=== PATIENT | male | born 1965 | race American Indian/Alaskan Native ===

== ENCOUNTER 2021-11-20 16:08 | Emergency (ER) | payer MEDICARE ==
[2021-11-20 17:24] LABS: #Basophils 0.1 10x3/uL (0.0-0.2); #Monocytes 0.6 10x3/uL (0.0-1.1); #Neutrophils 6.2 10x3/uL (1.5-8.4); %Basophils 0.6 % (0.0-2.0); %Eosinophils 0.4 % (0.0-6.0); %Lymphocytes 23.3 % (18.0-47.0); %Monocytes 6.9 % (0.0-10.0); %Neutrophils 68.6 % (40.0-75.0); Hemoglobin 16.9 g/dL (13.5-17.5); Mean Corpuscular HGB CONC 35.9 g/dL (32.0-36.0); Mean Corpuscular Hemoglobin 31.5 pg (27.0-33.0); Mean Corpuscular Volume 87.9 fl (81.2-95.1); Mean Platelet Volume 10.1 fl (7.4-10.4); Platelet Count 239 10x3/uL (150-450); RBC Distribution Width 12.3 % (11.5-14.5); Red Blood Cell (RBC) Count 5.36 10x6/uL (4.32-5.72)
[2021-11-20 17:36] LABS: Acetaminophen Less than 10.0 mcg/mL (10.0-30.0); Alcohol Less than 10 mg/dL (Less than 10); CK (CPK) 40 U/L (30-200); Magnesium 2.2 mg/dL (1.6-2.6); Salicylate Less than 8.0 mg/dL (15.0-30.0)
[2021-11-20 17:37] LABS: ALT (SGPT) 16 U/L (8-55); AST (SGOT) 16 U/L (5-34); Albumin 4.5 g/dL (3.5-5.0); Alcohol Less than 10 mg/dL (Less than 10); Alkaline Phosphatase 83 U/L (40-110); Anion Gap 21 mmol/L (10-20); BUN (Urea Nitrogen) 32 mg/dL (8.4-25.7); Bilirubin, Total 1.5 mg/dL (0.2-1.2); Calc. Creatinine Clearance 0 mL/min (70-130); Calcium 10.8 mg/dL (7.8-10.44); Carbon Dioxide 18 mmol/L (22-29); Chloride 104 mmol/L (98-107); Globulin 3.3 g/dL (2.4-3.5); Glucose 103 mg/dL (70-105); Potassium 4.4 mmol/L (3.5-5.1); Protein, Total 7.8 g/dL (6.0-8.3); Sodium 139 mmol/L (136-145)
[2021-11-20 18:26] LABS: SARS-CoV-2 NAA Rapid Test Not Detected (NotDetected)
[2021-11-20] MEDS ORDERED: Lorazepam 2 MG/ML VIAL ONE (20:57)
[2021-11-20 21:23] LABS: Bilirubin Neg (Negative); Blood, Urine 50 (Negative); Clarity Slightly Cloudy (Clear); Glucose, Urine (Dipstick) Normal (Negative); Ketone, Urine 150 mg/dL (Negative); Leukocyte Negative (Negative); Nitrite Negative (Negative); Protein, Urine (Dipstick) 30 mg/dl (Neg-Trace); Specific Gravity, Urine 1.025 (1.002-1.036)
[2021-11-20 21:34] LABS: Amphetamine Not Detected (NotDetected); Barbiturates Screen Not Detected (NotDetected); Benzodiazepine Screen Not Detected (NotDetected); Cocaine Metabolite Screen Not Detected (NotDetected); Methadone Not Detected (NotDetected); Methamphetamine Not Detected (NotDetected); Opiate Screen Not Detected (NotDetected); Oxycodone Screen Not Detected (NotDetected); Phencyclidine (PCP) Not Detected (NotDetected); THC/Cannabinoid Screen Not Detected (NotDetected); Tricyclic Screen Not Detected (NotDetected)
[2021-11-20 21:35] LABS: Bacteria/HPF None Seen HPF (None Seen); Squamous Epithelial 0-3 HPF (0-3); WBC/HPF 0-3 HPF (0-3)
[2021-11-21 09:05] LABS: Anion Gap 14 mmol/L (10-20); BUN (Urea Nitrogen) 25 mg/dL (8.4-25.7); Calc. Creatinine Clearance 0 mL/min (70-130); Calcium 9.5 mg/dL (7.8-10.44); Carbon Dioxide 20 mmol/L (22-29); Chloride 109 mmol/L (98-107); Glucose 86 mg/dL (70-105); Potassium 3.9 mmol/L (3.5-5.1); Sodium 139 mmol/L (136-145)
== END 2021-11-22 10:36 ==
LOC: CSHERS 16:08
DX: F20.2 Catatonic schizophrenia (principal); Z20.822 Contact with and (suspected) exposure to COVID-19
CPT/HCPCS: 70450; 71045; 80048; 80306; 80307 ×2; 82140; 82550; 83605; 83735; 93005; U0002; 51701; 80053; 81003; 81015; 84443; 85025; 93010; 96361; 96374; J2060

== ENCOUNTER 2022-04-22 17:43 | Emergency (ER) | payer MEDICARE ==
[2022-04-22 19:06] LABS: #Basophils 0.1 10x3/uL (0.0-0.2); #Eosinphils 0.1 10x3/uL (0.0-0.5); #Monocytes 0.7 10x3/uL (0.0-1.1); #Neutrophils 7.5 10x3/uL (1.5-8.4); %Basophils 0.6 % (0.0-2.0); %Lymphocytes 21.3 % (18.0-47.0); %Monocytes 6.4 % (0.0-10.0); %Neutrophils 70.4 % (40.0-75.0); Hemoglobin 17.3 g/dL (13.5-17.5); Mean Corpuscular HGB CONC 36.3 g/dL (32.0-36.0); Mean Corpuscular Hemoglobin 31.7 pg (27.0-33.0); Mean Corpuscular Volume 87.2 fl (81.2-95.1); Mean Platelet Volume 9.8 fl (7.4-10.4); Platelet Count 242 10x3/uL (150-450); Red Blood Cell (RBC) Count 5.46 10x6/uL (4.32-5.72); White Blood Cell (WBC) Count 10.7 10x3/uL (3.5-10.5)
[2022-04-22 19:19] LABS: Acetaminophen Less than 10.0 mcg/mL (10.0-30.0); Alcohol Less than 10 mg/dL (Less than 10); Salicylate Less than 8.0 mg/dL (15.0-30.0)
[2022-04-22 19:20] LABS: ALT (SGPT) 24 U/L (8-55); AST (SGOT) 17 U/L (5-34); Albumin 4.2 g/dL (3.5-5.0); Alkaline Phosphatase 76 U/L (40-110); Anion Gap 21 mmol/L (10-20); BUN (Urea Nitrogen) 26 mg/dL (8.4-25.7); CK (CPK) 30 U/L (30-200); Calc. Creatinine Clearance 0 mL/min (70-130); Calcium 10.5 mg/dL (7.8-10.44); Carbon Dioxide 18 mmol/L (22-29); Chloride 102 mmol/L (98-107); Estimated GFR 86; Globulin 3.5 g/dL (2.4-3.5); Glucose 110 mg/dL (70-105); Potassium 4.4 mmol/L (3.5-5.1); Protein, Total 7.7 g/dL (6.0-8.3); Sodium 137 mmol/L (136-145)
[2022-04-22 20:21] LABS: Bilirubin Neg (Negative); Blood, Urine 50 (Negative); Clarity Clear (Clear); Glucose, Urine (Dipstick) Normal (Negative); Ketone, Urine 150 mg/dL (Negative); Leukocyte Negative (Negative); Nitrite Negative (Negative); Protein, Urine (Dipstick) 30 mg/dl (Neg-Trace); Specific Gravity, Urine 1.025 (1.005-1.030)
[2022-04-22 20:28] LABS: Bacteria/HPF None Seen HPF (None Seen); Squamous Epithelial 0-3 HPF (0-3); WBC/HPF 0-3 HPF (0-3)
[2022-04-22 20:32] LABS: Amphetamine Not Detected (NotDetected); Barbiturates Screen Not Detected (NotDetected); Benzodiazepine Screen Not Detected (NotDetected); Cocaine Metabolite Screen Not Detected (NotDetected); Methadone Not Detected (NotDetected); Methamphetamine Not Detected (NotDetected); Opiate Screen Not Detected (NotDetected); Oxycodone Screen Not Detected (NotDetected); Phencyclidine (PCP) Not Detected (NotDetected); THC/Cannabinoid Screen Not Detected (NotDetected); Tricyclic Screen Not Detected (NotDetected)
[2022-04-22 23:58] LABS: SARS-CoV-2 NAA Rapid Test Not Detected (NotDetected)
== END 2022-04-23 20:44 ==
LOC: CSHERS 17:43
DX: F20.2 Catatonic schizophrenia (principal); F31.9 Bipolar disorder, unspecified; Z20.822 Contact with and (suspected) exposure to COVID-19
CPT/HCPCS: 51701; 70450; 71045; 80306; 80307; 82550; 82962; 93005; 96360; 96361; 99285; U0002; 36415; 36416; 80053; 81003; 81015; 84443; 85025

== ENCOUNTER 2023-02-13 19:11 | Inpatient (IN) | payer OTHER, MEDICARE ==
[2023-02-13] MEDS ORDERED: Naloxone HCl 0.4 mg/ml Vial ONE (19:21)
[2023-02-13] MEDS ORDERED: Lorazepam 2 MG/ML VIAL ONE (19:22)
[2023-02-13] MEDS ORDERED: Acetaminophen 325 MG Suppository ONE (19:25)
[2023-02-13] MEDS ORDERED: Acetaminophen 650 MG Suppository ONE (19:25)
[2023-02-13] MEDS ORDERED: NOREPINEPHRINE 8 MG/250 ML-D5W 250 ML ONE ×2 (19:30→22:52)
[2023-02-13] MEDS ORDERED: Propofol 1,000 MG/100 ML VIAL IV ONE (19:42)
[2023-02-13 19:55] LABS: Hematocrit 48.7 % (38.8-50.0); Hemoglobin 16.4 g/dL (13.5-17.5); Mean Corpuscular HGB CONC 33.7 g/dL (32.0-36.0); Mean Corpuscular Hemoglobin 31.4 pg (27.0-33.0); Mean Corpuscular Volume 93.3 fl (81.2-95.1); Mean Platelet Volume 11.1 fl (7.4-10.4); Platelet Count 163 10x3/uL (150-450); RBC Distribution Width 12.6 % (11.5-14.5); Red Blood Cell (RBC) Count 5.22 10x6/uL (4.32-5.72); White Blood Cell (WBC) Count 6.3 10x3/uL (3.5-10.5)
[2023-02-13 19:55] LABS: Bilirubin Neg (Negative); Blood, Urine 250 (Negative); Glucose, Urine (Dipstick) Normal (Negative); Ketone, Urine 50 mg/dL (Negative); Leukocyte 100 (Negative); Nitrite Negative (Negative); Protein, Urine (Dipstick) 100 mg/dl (Neg-Trace); Specific Gravity, Urine 1.015 (1.005-1.030); Urobilinogen Normal mg/dL (Less than 2)
[2023-02-13 19:56] LABS: MDiff Complete? YES
[2023-02-13 20:02] LABS: ALT (SGPT) 22 U/L (8-55); AST (SGOT) 36 U/L (5-34); Acetaminophen Less than 10 mcg/mL (10.0-30.0); Albumin 3.8 g/dL (3.5-5.0); Alcohol Less than 10.0 mg/dL (Less than 10); Alkaline Phosphatase 57 U/L (40-110); Anion Gap 22 mmol/L (10-20); BUN (Urea Nitrogen) 36 mg/dL (8.4-25.7); Bilirubin, Total 0.3 mg/dL (0.2-1.2); Calc. Creatinine Clearance 0 mL/min (70-130); Carbon Dioxide 13 mmol/L (22-29); Chloride 112 mmol/L (98-107); Estimated GFR 47; Globulin 3.2 g/dL (2.4-3.5); Glucose 144 mg/dL (70-105); Lipase 79 U/L (8-78); Magnesium 1.9 mg/dL (1.6-2.6); Potassium 5.4 mmol/L (3.5-5.1); Salicylate Less than 8.0 mg/dL (15.0-30.0); Sodium 142 mmol/L (136-145)
[2023-02-13 20:02] LABS: Clarity Slightly Cloudy (Clear)
[2023-02-13 20:03] LABS: Amphetamine Not Detected (NotDetected); Barbiturates Screen Not Detected (NotDetected); Benzodiazepine Screen Not Detected (NotDetected); Cocaine Metabolite Screen Not Detected (NotDetected); Methadone Not Detected (NotDetected); Methamphetamine Not Detected (NotDetected); Opiate Screen Not Detected (NotDetected); Oxycodone Screen Not Detected (NotDetected); Phencyclidine (PCP) Not Detected (NotDetected); THC/Cannabinoid Screen Not Detected (NotDetected); Tricyclic Screen Not Detected (NotDetected)
[2023-02-13 20:06] LABS: CAUTI Indications for Culture Alt mental st,lethar; RBC/HPF Greater than 50 HPF (0-3); Squamous Epithelial 0-3 HPF (0-3)
[2023-02-13 20:07] LABS: Mucous/LPF 1+ LPF (<2+)
[2023-02-13 20:08] LABS: Urine Culture Reflex No No
[2023-02-13 20:13] LABS: Lymphocytes 57 % (21-51); Monocytes 6 % (0-10); Myelocyte 3 % (0-0); Neutrophil 31 % (42-75); Reactive Lymphocytes 3 % (0-10)
[2023-02-13 20:14] LABS: Platelet Adequacy Comment Appears Adequate; Platelet Clumps SLIGHT; RBC Morph Comment Within Normal Limits
[2023-02-13 21:01] LABS: ALV-art Gradient 163.525 mmHg (0-20); Actual Bicarbonate (HCO3a) 11.6 mEq/L (22-28); Base Excess (BEa) -15.8 mEq/L (-2.0 to +3.0); CO2 Tension 32.7 mmHg (35.0-45.0); Calcium, Ionized (arterial) 1.31 mmol/L (1.12-1.30); Carboxyhemoglobin (COHb) 0.3 gm% (0.0-3.0); Critical Notified By: CP.PH; Hematocrit-ABG 47 % (42.0-52.0); O2 Tension (PaO2), arterial 80.8 mmHg (> 80.0); Potassium - ABG Lab 4.23 mmol/L (3.70-5.30); Puncture Site RBA; RapidComm Collect By CP.PH; pH, Arterial 7.166 (7.35-7.45)
[2023-02-13] MEDS ORDERED: Piperacillin/Tazobactam 3.375 GM VIAL ONE (21:11)
[2023-02-13] MEDS ORDERED: Vancomycin 1 GM VIAL ONE (21:45)
[2023-02-13] MEDS ORDERED: Ventilator Sedation Protocol 1 EACH FS SCH (22:59)
[2023-02-13] MEDS ORDERED: Communication Order-Pharmacy FS PRN (22:59)
[2023-02-13] MEDS ORDERED: Acetaminophen 650 MG Suppository PR PRN (23:06)
[2023-02-13] MEDS ORDERED: Fentanyl BOLUS 250 ML IVPB PRN (23:30)
[2023-02-13] MEDS ORDERED: Propofol BOLUS 1,000 MG/100 ML VIAL IV PRN (23:30)
[2023-02-13] MEDS ORDERED: DISCONTINUE PREVIOUS NARCOTIC PAIN MEDICATIONS AND BENZODIAZEPINES FS SCH (23:30)
[2023-02-13] MEDS ORDERED: Morphine 2 MG/ML VIAL SLOW IVP PRN (23:30)
[2023-02-13] MEDS: FENTANYL 2,000MCG/100-0.9%NACL 100 ML IVPB SCH (23:40)
[2023-02-13] MEDS: NOREPINEPHRINE 8 MG/250 ML-D5W 250 ML IVPB SCH (23:45)
[2023-02-13] MEDS: Sodium Chloride 0.9% 1,000 ML IV SCH (23:46)
[2023-02-13] MEDS ORDERED: LevoFLOXacin 750 mg/D5W 150 ml Premix Bag ONE (23:55)
[2023-02-13] MEDS: Cefepime 2 GM in Sodium Chloride 0.9% 100 ML IVPB SCH (23:57)
[2023-02-13] MEDS ORDERED: LevoFLOXacin 750 mg/D5W 750 MG in Premix Bag 1 BAG IVPB SCH (23:59)
[2023-02-14 00:13] LABS: CK (CPK) 272 U/L (30-200); Magnesium 1.9 mg/dL (1.6-2.6)
[2023-02-14] MEDS ORDERED: Lactated Ringer's 1,000 ML IV SCH ×3 (00:15→10:15)
[2023-02-14 00:34] LABS: Troponin I 0.416 ng/mL (< 0.028)
[2023-02-14 01:00] LABS: SARS-CoV-2 NAA Rapid Test Not Detected (NotDetected)
[2023-02-14] MEDS: Propofol 1,000 MG/100 ML VIAL IV PRN ×2 (01:14→13:58)
[2023-02-14] MEDS: Lorazepam 2 MG/ML VIAL SLOW IVP PRN (01:25)
[2023-02-14 02:42] LABS: #Neutrophils 9.8 10x3/uL (1.5-8.4); %Basophils 0.2 % (0.0-2.0); %Eosinophils 0.2 % (0.0-6.0); %Lymphocytes 6.5 % (18.0-47.0); %Monocytes 8.4 % (0.0-10.0); %Neutrophils 83.6 % (40.0-75.0); Hematocrit 42.1 % (38.8-50.0); Mean Corpuscular HGB CONC 33.3 g/dL (32.0-36.0); Mean Corpuscular Hemoglobin 31.5 pg (27.0-33.0); Mean Corpuscular Volume 94.8 fl (81.2-95.1); Mean Platelet Volume 10.1 fl (7.4-10.4); Platelet Count 127 10x3/uL (150-450); RBC Distribution Width 12.7 % (11.5-14.5); Red Blood Cell (RBC) Count 4.44 10x6/uL (4.32-5.72); White Blood Cell (WBC) Count 11.8 10x3/uL (3.5-10.5)
[2023-02-14 02:48] LABS: Lactic Acid 3.4 mmol/L (0.5-2.2)
[2023-02-14 03:00] LABS: Anion Gap 15 mmol/L (10-20); BUN (Urea Nitrogen) 41 mg/dL (8.4-25.7); Calc. Creatinine Clearance 45 mL/min (70-130); Calcium 8.2 mg/dL (7.8-10.44); Carbon Dioxide 13 mmol/L (22-29); Chloride 121 mmol/L (98-107); Estimated GFR 52; Glucose 128 mg/dL (70-105); Sodium 145 mmol/L (136-145)
[2023-02-14 03:01] LABS: Troponin I 0.569 ng/mL (< 0.028)
[2023-02-14] MEDS: Sodium Chloride 0.9% 1,000 ML IV SCH (03:59)
[2023-02-14] MEDS: Vasopressin 20 UNITS, Admixture Fee 1 EACH in Sodium Chloride 0.9% 50 ML IV SCH ×3 (05:48→17:51)
[2023-02-14 06:57] LABS: ALV-art Gradient 253.425 mmHg (0-20); Actual Bicarbonate (HCO3a) 12.7 mEq/L (22-28); Base Excess (BEa) -15.4 mEq/L (-2.0 to +3.0); CO2 Tension 37.5 mmHg (35.0-45.0); Calcium, Ionized (arterial) 1.25 mmol/L (1.12-1.30); Carboxyhemoglobin (COHb) 0.3 gm% (0.0-3.0); Critical Notified By: CP.PH; Hematocrit-ABG 43 % (42.0-52.0); Hemoglobin (Hb) 14.7 g/dL (14.0-18.0); O2 Tension (PaO2), arterial 56.2 mmHg (> 80.0); Potassium - ABG Lab 3.84 mmol/L (3.70-5.30); Puncture Site RFA; pH, Arterial 7.147 (7.35-7.45)
[2023-02-14] MEDS: NOREPINEPHRINE 8 MG/250 ML-D5W 250 ML IVPB SCH ×3 (08:40→23:37)
[2023-02-14] MEDS: FENTANYL 2,000MCG/100-0.9%NACL 100 ML IVPB SCH (08:41)
[2023-02-14] MEDS ORDERED: Sodium Bicarb 50 MEQ/50 ML VIAL IVP SCH (09:00)
[2023-02-14] MEDS: Lactated Ringer's 1,000 ML IV SCH ×2 (09:00→18:04)
[2023-02-14] MEDS ORDERED: Hydrocortisone Sod Succ/PF 100 mg/2 ml Vial IVP SCH (09:00)
[2023-02-14] MEDS ORDERED: Acetaminophen 325 MG TAB PO PRN (10:22)
[2023-02-14] MEDS: Acetaminophen 325 MG TAB PO PRN ×2 (10:27→20:32)
[2023-02-14] MEDS: Cefepime 2 GM in Sodium Chloride 0.9% 100 ML IVPB SCH ×2 (11:29→23:36)
[2023-02-14] MEDS ORDERED: Dextrose 50% Abboject 50 ML SYRINGE SLOW IVP PRN (11:52)
[2023-02-14] MEDS ORDERED: Glucagon 1 MG/ML KIT IM PRN (11:52)
[2023-02-14] MEDS ORDERED: Dextrose 5% in Water 1,000 ML IV PRN (11:52)
[2023-02-14 13:27] LABS: Anion Gap 16 mmol/L (10-20); BUN (Urea Nitrogen) 44 mg/dL (8.4-25.7); Calc. Creatinine Clearance 48 mL/min (70-130); Calcium 7.8 mg/dL (7.8-10.44); Carbon Dioxide 16 mmol/L (22-29); Chloride 121 mmol/L (98-107); Estimated GFR 54; Glucose 80 mg/dL (70-105); Potassium 4.9 mmol/L (3.5-5.1); Sodium 148 mmol/L (136-145)
[2023-02-14 13:30] LABS: Troponin I 0.674 ng/mL (< 0.028)
[2023-02-14 14:10] LABS: ALV-art Gradient 275.025 mmHg (0-20); Base Excess (BEa) -12.7 mEq/L (-2.0 to +3.0); CO2 Tension 25.1 mmHg (35.0-45.0); Calcium, Ionized (arterial) 1.18 mmol/L (1.12-1.30); Carboxyhemoglobin (COHb) 0.3 gm% (0.0-3.0); Hematocrit-ABG 40 % (42.0-52.0); Hemoglobin (Hb) 13.7 g/dL (14.0-18.0); Potassium - ABG Lab 3.67 mmol/L (3.70-5.30); Puncture Site RBA; pH, Arterial 7.296 (7.35-7.45)
[2023-02-14] MEDS: Hydrocortisone Sod Succ/PF 100 mg/2 ml Vial IVP SCH ×2 (16:16→20:28)
[2023-02-14] MEDS: Sertraline 100 MG TAB PO SCH (20:30)
[2023-02-14] MEDS ORDERED: OLANZapine 5 MG TAB PO SCH (21:00)
[2023-02-15] MEDS: Hydrocortisone Sod Succ/PF 100 mg/2 ml Vial IVP SCH ×4 (03:18→21:01)
[2023-02-15] MEDS: Acetaminophen 325 MG TAB PO PRN ×2 (03:51→21:00)
[2023-02-15 03:57] LABS: Anion Gap 15 mmol/L (10-20); BUN (Urea Nitrogen) 32 mg/dL (8.4-25.7); Calc. Creatinine Clearance 61 mL/min (70-130); Calcium 7.9 mg/dL (7.8-10.44); Carbon Dioxide 15 mmol/L (22-29); Chloride 116 mmol/L (98-107); Estimated GFR 71; Glucose 152 mg/dL (70-105); Magnesium 1.3 mg/dL (1.6-2.6); Potassium 3.8 mmol/L (3.5-5.1); Sodium 142 mmol/L (136-145)
[2023-02-15 03:59] LABS: Mean Platelet Volume 11.9 fl (7.4-10.4)
[2023-02-15 04:05] LABS: White Blood Cell (WBC) Count 19.3 10x3/uL (3.5-10.5)
[2023-02-15 04:06] LABS: Hematocrit 35.5 % (38.8-50.0); Red Blood Cell (RBC) Count 3.78 10x6/uL (4.32-5.72)
[2023-02-15 04:07] LABS: Mean Corpuscular Hemoglobin 31.7 pg (27.0-33.0); Mean Corpuscular Volume 93.9 fl (81.2-95.1)
[2023-02-15 04:08] LABS: Mean Corpuscular HGB CONC 33.8 g/dL (32.0-36.0); RBC Distribution Width 13.2 % (11.5-14.5)
[2023-02-15 04:09] LABS: Platelet Count 48 10x3/uL (150-450)
[2023-02-15] MEDS: Lactated Ringer's 1,000 ML IV SCH (05:34)
[2023-02-15] MEDS: FENTANYL 2,000MCG/100-0.9%NACL 100 ML IVPB SCH (06:00)
[2023-02-15] MEDS: Vasopressin 20 UNITS, Admixture Fee 1 EACH in Sodium Chloride 0.9% 50 ML IV SCH ×2 (06:00→17:12)
[2023-02-15] MEDS ORDERED: Sodium Phosphate 15 MMOL in Sodium Chloride 0.9% 250 ML 250 ML IVPB SCH (07:30)
[2023-02-15] MEDS ORDERED: Magnesium 2 GM/50 ML(in water) 2 GM in Premix Bag 1 BAG IVPB SCH (07:30)
[2023-02-15] MEDS ORDERED: Dexmedetomidine In 0.9 % NaCl 100 ML ONE (09:27)
[2023-02-15] MEDS: Dexmedetomidine In 0.9 % NaCl 100 ML IVPB SCH ×2 (09:30→13:48)
[2023-02-15 10:13] LABS: ALV-art Gradient 111.175 mmHg (0-20); Actual Bicarbonate (HCO3a) 11.8 mEq/L (22-28); CO2 Tension 30.9 mmHg (35.0-45.0); Calcium, Ionized (arterial) 1.15 mmol/L (1.12-1.30); Carboxyhemoglobin (COHb) 0.3 gm% (0.0-3.0); Hematocrit-ABG 36 % (42.0-52.0); Hemoglobin (Hb) 12.3 g/dL (14.0-18.0); O2 Tension (PaO2), arterial 135.4 mmHg (> 80.0); Potassium - ABG Lab 3.87 mmol/L (3.70-5.30); Puncture Site RBA; pH, Arterial 7.199 (7.35-7.45)
[2023-02-15] MEDS ORDERED: VANCOMYCIN 1.25 GM/250 ML BAG 1.25 GM in Premix Bag 1 BAG IVPB SCH (10:30)
[2023-02-15] MEDS ORDERED: Sodium Bicarb 50 MEQ/50 ML VIAL IVP SCH ×2 (10:30→13:00)
[2023-02-15] MEDS ORDERED: Ampicillin 2 GM in Sodium Chloride 0.9% 100 ML IVPB SCH (10:30)
[2023-02-15] MEDS ORDERED: Sodium Bicarbonate 150 MEQ in Dextrose 5% in Water 1,000 ML IV SCH (11:00)
[2023-02-15 11:08] LABS: Lactic Acid 7.2 mmol/L (0.5-2.2)
[2023-02-15 11:33] LABS: D-Dimer Test 3.92 mg/L FEU (0.19-0.50); INR-International Normal Ratio 1.9; Prothrombin Time 19.8 sec (9.5-12.1)
[2023-02-15 11:37] LABS: ALT (SGPT) 1331 U/L (8-55); AST (SGOT) 839 U/L (5-34); Albumin 2.7 g/dL (3.5-5.0); Alkaline Phosphatase 56 U/L (40-110); Bilirubin, Direct 0.5 mg/dL (0.1-0.3); Bilirubin, Total 0.7 mg/dL (0.2-1.2)
[2023-02-15 11:56] LABS: Hemoglobin A1c 5.2 % (4.0-6.0)
[2023-02-15] MEDS ORDERED: Iopamidol 300 61% 100 ML VIAL FS ONE (12:22)
[2023-02-15 12:35] LABS: Protein, Total 5.1 g/dL (6.0-8.3)
[2023-02-15] MEDS: Cefepime 2 GM in Sodium Chloride 0.9% 100 ML IVPB SCH (13:13)
[2023-02-15 14:28] LABS: HIV (1/2) Antibody/Antigen Non-Reactive (NonReactive); HIV 1/2 INDEX 0.06 S/CO (<1.00)
[2023-02-15 15:49] LABS: ALV-art Gradient 120.425 mmHg (0-20); Actual Bicarbonate (HCO3a) 19.1 mEq/L (22-28); Base Excess (BEa) -0.8 mEq/L (-2.0 to +3.0); CO2 Tension 20.7 mmHg (35.0-45.0); Calcium, Ionized (arterial) 1.11 mmol/L (1.12-1.30); Carboxyhemoglobin (COHb) 0.3 gm% (0.0-3.0); Hematocrit-ABG 37 % (42.0-52.0); Hemoglobin (Hb) 12.7 g/dL (14.0-18.0); O2 Tension (PaO2), arterial 138.9 mmHg (> 80.0); Potassium - ABG Lab 3.39 mmol/L (3.70-5.30); Puncture Site Arterial Line; pH, Arterial 7.583 (7.35-7.45)
[2023-02-15 15:54] LABS: Lactic Acid 3.6 mmol/L (0.5-2.2)
[2023-02-15 15:59] LABS: ALT (SGPT) 1221 U/L (8-55); AST (SGOT) 658 U/L (5-34); Albumin 2.5 g/dL (3.5-5.0); Alkaline Phosphatase 45 U/L (40-110); Anion Gap 16 mmol/L (10-20); BUN (Urea Nitrogen) 27 mg/dL (8.4-25.7); Bilirubin, Total 0.8 mg/dL (0.2-1.2); Calc. Creatinine Clearance 82 mL/min (70-130); Calcium 7.8 mg/dL (7.8-10.44); Carbon Dioxide 18 mmol/L (22-29); Chloride 112 mmol/L (98-107); Estimated GFR 98; Globulin 2.3 g/dL (2.4-3.5); Glucose 209 mg/dL (70-105); Potassium 3.5 mmol/L (3.5-5.1); Protein, Total 4.8 g/dL (6.0-8.3); Sodium 142 mmol/L (136-145)
[2023-02-15 16:14] LABS: Hematocrit 34.6 % (38.8-50.0); Hemoglobin 12.4 g/dL (13.5-17.5); Mean Corpuscular HGB CONC 35.8 g/dL (32.0-36.0); Mean Corpuscular Hemoglobin 31.7 pg (27.0-33.0); Mean Corpuscular Volume 88.5 fl (81.2-95.1); RBC Distribution Width 13.1 % (11.5-14.5); Red Blood Cell (RBC) Count 3.91 10x6/uL (4.32-5.72); White Blood Cell (WBC) Count 26.1 10x3/uL (3.5-10.5)
[2023-02-15 16:37] LABS: MDiff Complete? YES
[2023-02-15 16:40] LABS: Lymphocytes 8 % (21-51); Monocytes 5 % (0-10)
[2023-02-15 16:41] LABS: Mean Platelet Volume 12.1 fl (7.4-10.4); Platelet Count 48 10x3/uL (150-450)
[2023-02-15 16:42] LABS: Band 6 % (5-11); Neutrophil 81 % (42-75)
[2023-02-15 16:46] LABS: Platelet Adequacy Comment Appears Decreased; RBC Morph Comment Within Normal Limits
[2023-02-15] MEDS: NOREPINEPHRINE 8 MG/250 ML-D5W 250 ML IVPB SCH (16:59)
[2023-02-15 17:22] LABS: Actual Bicarbonate (HCO3a) 19.7 mEq/L (22-28); Base Excess (BEa) -1.8 mEq/L (-2.0 to +3.0); CO2 Tension 25.2 mmHg (35.0-45.0); Calcium, Ionized (arterial) 1.13 mmol/L (1.12-1.30); Carboxyhemoglobin (COHb) 0.3 gm% (0.0-3.0); Hematocrit-ABG 38 % (42.0-52.0); Hemoglobin (Hb) 12.8 g/dL (14.0-18.0); O2 Tension (PaO2), arterial 151.5 mmHg (> 80.0); Potassium - ABG Lab 3.38 mmol/L (3.70-5.30); Puncture Site Arterial Line; pH, Arterial 7.511 (7.35-7.45)
[2023-02-15] MEDS: Sertraline 100 MG TAB PO SCH (19:33)
[2023-02-15] MEDS: Doxycycline 100 MG in Sodium Chloride 0.9% 100 ML IVPB SCH (20:59)
[2023-02-15] MEDS ORDERED: Vancomycin HCl 1 GM in Sodium Chloride 0.9% 250 ML 300 ML IVPB SCH (21:00)
[2023-02-15] MEDS: Valproate Sodium 250 mg/5 ml UD Cup PO SCH (21:00)
[2023-02-15] MEDS: Famotidine/PF 20 mg/2ml Vial SLOW IVP SCH (21:01)
[2023-02-15] MEDS: Vancomycin HCl 750 MG in Sodium Chloride 0.9% 250 ML 250 ML IVPB SCH (21:44)
[2023-02-15] MEDS ORDERED: Furosemide 40 MG/4 ML VIAL SLOW IVP SCH (21:45)
[2023-02-15] MEDS ORDERED: LevoFLOXacin 750 mg/D5W 750 MG in Premix Bag 1 BAG IVPB SCH (23:59)
[2023-02-16] MEDS: Dexmedetomidine In 0.9 % NaCl 100 ML IVPB SCH ×2 (00:34→16:09)
[2023-02-16] MEDS: Cefepime 2 GM in Sodium Chloride 0.9% 100 ML IVPB SCH ×2 (00:34→12:35)
[2023-02-16] MEDS: Hydrocortisone Sod Succ/PF 100 mg/2 ml Vial IVP SCH ×4 (03:03→21:54)
[2023-02-16] MEDS: FENTANYL 2,000MCG/100-0.9%NACL 100 ML IVPB SCH (03:16)
[2023-02-16 04:00] LABS: Hematocrit 35.3 % (38.8-50.0); Hemoglobin 12.2 g/dL (13.5-17.5); Mean Corpuscular HGB CONC 34.6 g/dL (32.0-36.0); Mean Corpuscular Volume 89.8 fl (81.2-95.1); Mean Platelet Volume 12.1 fl (7.4-10.4); Platelet Count 31 10x3/uL (150-450); RBC Distribution Width 13.3 % (11.5-14.5); Red Blood Cell (RBC) Count 3.93 10x6/uL (4.32-5.72); White Blood Cell (WBC) Count 17.7 10x3/uL (3.5-10.5)
[2023-02-16 04:04] LABS: INR-International Normal Ratio 1.4; Prothrombin Time 14.9 sec (9.5-12.1)
[2023-02-16 04:12] LABS: ALT (SGPT) 1056 U/L (8-55); AST (SGOT) 345 U/L (5-34); Albumin 2.6 g/dL (3.5-5.0); Alkaline Phosphatase 47 U/L (40-110); Anion Gap 14 mmol/L (10-20); BUN (Urea Nitrogen) 25 mg/dL (8.4-25.7); Bilirubin, Total 0.7 mg/dL (0.2-1.2); Calc. Creatinine Clearance 70 mL/min (70-130); Calcium 8.1 mg/dL (7.8-10.44); Carbon Dioxide 23 mmol/L (22-29); Chloride 110 mmol/L (98-107); Estimated GFR 80; Globulin 2.5 g/dL (2.4-3.5); Glucose 194 mg/dL (70-105); Potassium 3.3 mmol/L (3.5-5.1); Protein, Total 5.1 g/dL (6.0-8.3); Sodium 144 mmol/L (136-145)
[2023-02-16 04:13] LABS: ALT (SGPT) 1075 U/L (8-55); AST (SGOT) 345 U/L (5-34); Albumin 2.6 g/dL (3.5-5.0); Alkaline Phosphatase 46 U/L (40-110); Bilirubin, Direct 0.4 mg/dL (0.1-0.3); Bilirubin, Total 0.7 mg/dL (0.2-1.2); Protein, Total 4.8 g/dL (6.0-8.3)
[2023-02-16 04:21] LABS: MDiff Complete? YES
[2023-02-16 04:24] LABS: Band 19 % (5-11); Lymphocytes 4 % (21-51); Monocytes 5 % (0-10); Neutrophil 72 % (42-75)
[2023-02-16 04:25] LABS: Platelet Adequacy Comment Platelets Decreased; RBC Morph Comment Within Normal Limits
[2023-02-16 05:15] LABS: ALV-art Gradient 59.675 mmHg (0-20); Actual Bicarbonate (HCO3a) 25.7 mEq/L (22-28); Base Excess (BEa) 0.9 mEq/L (-2.0 to +3.0); CO2 Tension 41.7 mmHg (35.0-45.0); Calcium, Ionized (arterial) 1.15 mmol/L (1.12-1.30); Carboxyhemoglobin (COHb) 0.3 gm% (0.0-3.0); Critical Notified By: CP.PH; Hematocrit-ABG 38 % (42.0-52.0); Hemoglobin (Hb) 12.8 g/dL (14.0-18.0); O2 Tension (PaO2), arterial 102.1 mmHg (> 80.0); Potassium - ABG Lab 3.19 mmol/L (3.70-5.30); Puncture Site Arterial Line; RapidComm Collect By CP.PH; pH, Arterial 7.407 (7.35-7.45)
[2023-02-16] MEDS: Vasopressin 20 UNITS, Admixture Fee 1 EACH in Sodium Chloride 0.9% 50 ML IV SCH (07:24)
[2023-02-16 07:31] LABS: Magnesium 1.9 mg/dL (1.6-2.6)
[2023-02-16] MEDS: Famotidine/PF 20 mg/2ml Vial SLOW IVP SCH ×2 (08:22→21:55)
[2023-02-16] MEDS: Potassium Chloride 20 MEQ in Premix Bag 1 BAG IVPB SCH ×2 (08:22→09:45)
[2023-02-16] MEDS: Doxycycline 100 MG in Sodium Chloride 0.9% 100 ML IVPB SCH ×2 (08:22→21:54)
[2023-02-16] MEDS: Valproate Sodium 250 mg/5 ml UD Cup PO SCH ×2 (08:22→21:54)
[2023-02-16] MEDS ORDERED: Potassium Bicarbonate/Cit Ac 20 MEQ TAB PO SCH (09:00)
[2023-02-16] MEDS: Vancomycin HCl 750 MG in Sodium Chloride 0.9% 250 ML 250 ML IVPB SCH (09:45)
[2023-02-16] MEDS: HumaLOG 300 UNITS/3 ML VIAL SC PRN ×4 (10:05→20:10)
[2023-02-16 12:39] LABS: HBCM Index 0.05 S/CO (0-0.79); HBSAg Index 0.28 S/CO (0-0.99); Hep A IgM AB Non-Reactive S/CO (NonReactive); Hep B Surf Ag Non-Reactive S/CO (NonReactive); Hep C IgG Ab Non-Reactive S/CO (NonReactive); Hep C Index 0.13 S/CO (0-0.79); Hepatitis B Core IgM Abs Non-Reactive S/CO (NonReactive)
[2023-02-16 13:15] LABS: Ref Lab Test Ordered ADAMTS-13; Reference Lab Name LABCORP
[2023-02-16] MEDS: Sodium Chloride 0.9% 1,000 ML IV SCH (22:02)
[2023-02-16 22:19] LABS: Vancomycin, Trough 11.4 ug/mL
[2023-02-16] MEDS: Vancomycin HCl 1 GM in Sodium Chloride 0.9% 250 ML 250 ML IVPB SCH (23:18)
[2023-02-17] MEDS: Vancomycin HCl 750 MG in Sodium Chloride 0.9% 250 ML 250 ML IVPB SCH (00:11)
[2023-02-17] MEDS: Cefepime 2 GM in Sodium Chloride 0.9% 100 ML IVPB SCH ×2 (00:15→12:49)
[2023-02-17] MEDS: HumaLOG 300 UNITS/3 ML VIAL SC PRN ×4 (00:40→20:50)
[2023-02-17] MEDS: Hydrocortisone Sod Succ/PF 100 mg/2 ml Vial IVP SCH ×3 (03:32→20:49)
[2023-02-17 04:01] LABS: Hematocrit 34.6 % (38.8-50.0); Hemoglobin 12.3 g/dL (13.5-17.5); Mean Corpuscular HGB CONC 35.5 g/dL (32.0-36.0); Mean Corpuscular Hemoglobin 31.7 pg (27.0-33.0); Mean Corpuscular Volume 89.2 fl (81.2-95.1); Mean Platelet Volume 11.2 fl (7.4-10.4); Platelet Count 32 10x3/uL (150-450); RBC Distribution Width 13.3 % (11.5-14.5); Red Blood Cell (RBC) Count 3.88 10x6/uL (4.32-5.72); White Blood Cell (WBC) Count 21.2 10x3/uL (3.5-10.5)
[2023-02-17 04:04] LABS: ALV-art Gradient 80.075 mmHg (0-20); Actual Bicarbonate (HCO3a) 21.6 mEq/L (22-28); Base Excess (BEa) 1.3 mEq/L (-2.0 to +3.0); CO2 Tension 23.3 mmHg (35.0-45.0); Calcium, Ionized (arterial) 1.21 mmol/L (1.12-1.30); Carboxyhemoglobin (COHb) 0.3 gm% (0.0-3.0); Critical Notified By: CP.PH; Hematocrit-ABG 38 % (42.0-52.0); O2 Tension (PaO2), arterial 104.7 mmHg (> 80.0); Potassium - ABG Lab 3.75 mmol/L (3.70-5.30); Puncture Site Arterial Line; pH, Arterial 7.584 (7.35-7.45)
[2023-02-17 04:06] LABS: Anion Gap 14 mmol/L (10-20); BUN (Urea Nitrogen) 33 mg/dL (8.4-25.7); Calc. Creatinine Clearance 93 mL/min (70-130); Calcium 8.6 mg/dL (7.8-10.44); Carbon Dioxide 17 mmol/L (22-29); Chloride 116 mmol/L (98-107); Estimated GFR 100; Glucose 162 mg/dL (70-105); Potassium 3.8 mmol/L (3.5-5.1); Sodium 143 mmol/L (136-145)
[2023-02-17 04:24] LABS: Phosphorus Less than 1.0 mg/dL (2.3-4.7)
[2023-02-17] MEDS ORDERED: Potassium Phosphate 15 MMOL in Sodium Chloride 0.9% 100 ML IVPB SCH (05:30)
[2023-02-17] MEDS: Vasopressin 20 UNITS, Admixture Fee 1 EACH in Sodium Chloride 0.9% 50 ML IV SCH (07:36)
[2023-02-17] MEDS: Doxycycline 100 MG in Sodium Chloride 0.9% 100 ML IVPB SCH ×2 (09:50→20:49)
[2023-02-17] MEDS: Famotidine/PF 20 mg/2ml Vial SLOW IVP SCH ×2 (09:52→20:51)
[2023-02-17] MEDS: Valproate Sodium 250 mg/5 ml UD Cup PO SCH ×2 (09:54→20:51)
[2023-02-17] MEDS: Sodium Chloride 0.9% 1,000 ML IV SCH (10:44)
[2023-02-17] MEDS: Vancomycin HCl 1 GM in Sodium Chloride 0.9% 250 ML 250 ML IVPB SCH ×2 (11:47→22:18)
[2023-02-17] MEDS: Dexmedetomidine In 0.9 % NaCl 100 ML IVPB SCH (17:55)
[2023-02-17] MEDS: Lorazepam 2 MG/ML VIAL SLOW IVP PRN (20:17)
[2023-02-17] MEDS ORDERED: Piperacillin/Tazobactam 3.375 GM in Sodium Chloride 0.9% 100 ML IVPB SCH (23:45)
[2023-02-17] MEDS ORDERED: Piperacillin/Tazobactam 4.5 GM in Sodium Chloride 0.9% 100 ML IVPB SCH (23:59)
[2023-02-18] MEDS: Sodium Chloride 0.9% 1,000 ML IV SCH (00:17)
[2023-02-18 02:50] LABS: Legionella Urinary Ag Negative (Negative)
[2023-02-18 02:51] LABS: Strep pneumo Urine Ag NEGATIVE (NEGATIVE)
[2023-02-18] MEDS: Piperacillin/Tazobactam 3.375 GM in Sodium Chloride 0.9% 100 ML IVPB SCH ×3 (03:27→18:02)
[2023-02-18 04:20] LABS: Hematocrit 37.7 % (38.8-50.0); Hemoglobin 12.7 g/dL (13.5-17.5); Mean Corpuscular HGB CONC 33.7 g/dL (32.0-36.0); Mean Corpuscular Hemoglobin 31.6 pg (27.0-33.0); Mean Corpuscular Volume 93.8 fl (81.2-95.1); Platelet Count 50 10x3/uL (150-450); RBC Distribution Width 13.8 % (11.5-14.5); Red Blood Cell (RBC) Count 4.02 10x6/uL (4.32-5.72); White Blood Cell (WBC) Count 28.8 10x3/uL (3.5-10.5)
[2023-02-18 04:24] LABS: ALT (SGPT) 432 U/L (8-55); AST (SGOT) 42 U/L (5-34); Albumin 2.5 g/dL (3.5-5.0); Alkaline Phosphatase 48 U/L (40-110); Anion Gap 16 mmol/L (10-20); BUN (Urea Nitrogen) 26 mg/dL (8.4-25.7); Bilirubin, Total 0.8 mg/dL (0.2-1.2); Calc. Creatinine Clearance 88 mL/min (70-130); Calcium 8.7 mg/dL (7.8-10.44); Carbon Dioxide 19 mmol/L (22-29); Chloride 116 mmol/L (98-107); Estimated GFR 100; Globulin 2.5 g/dL (2.4-3.5); Glucose 185 mg/dL (70-105); Phosphorus 1.4 mg/dL (2.3-4.7); Potassium 3.7 mmol/L (3.5-5.1); Sodium 147 mmol/L (136-145)
[2023-02-18] MEDS: HumaLOG 300 UNITS/3 ML VIAL SC PRN ×5 (04:36→22:20)
[2023-02-18] MEDS: Hydrocortisone Sod Succ/PF 100 mg/2 ml Vial IVP SCH ×3 (04:47→21:00)
[2023-02-18] MEDS ORDERED: Potassium Phosphate 15 MMOL in Sodium Chloride 0.9% 250 ML 250 ML IVPB SCH (05:00)
[2023-02-18] MEDS: Doxycycline 100 MG in Sodium Chloride 0.9% 100 ML IVPB SCH ×2 (07:56→21:13)
[2023-02-18] MEDS: Famotidine/PF 20 mg/2ml Vial SLOW IVP SCH ×2 (07:58→21:12)
[2023-02-18] MEDS: Valproate Sodium 250 mg/5 ml UD Cup PO SCH ×2 (07:58→21:14)
[2023-02-18] MEDS ORDERED: cefTRIAXone\\ROCEPHIN 2 GM in Sodium Chloride 0.9% 100 ML IVPB SCH (09:00)
[2023-02-18 10:43] LABS: Actual Bicarbonate (HCO3a) 22.1 mEq/L (22-28); Base Excess (BEa) -1.5 mEq/L (-2.0 to +3.0); CO2 Tension 33.4 mmHg (35.0-45.0); Calcium, Ionized (arterial) 1.23 mmol/L (1.12-1.30); Carboxyhemoglobin (COHb) 0.3 gm% (0.0-3.0); Hematocrit-ABG 35 % (42.0-52.0); O2 Tension (PaO2), arterial 113.6 mmHg (> 80.0); Potassium - ABG Lab 3.24 mmol/L (3.70-5.30); Puncture Site Arterial Line; pH, Arterial 7.438 (7.35-7.45)
[2023-02-18] MEDS: NOREPINEPHRINE 8 MG/250 ML-D5W 250 ML IVPB SCH (14:10)
[2023-02-18 21:08] LABS: RMSF IgG (EIA) Negative (Negative); RMSF IgM 0.29 index (0.00-0.89)
[2023-02-19] MEDS: Lorazepam 2 MG/ML VIAL SLOW IVP PRN ×4 (01:17→20:42)
[2023-02-19] MEDS: HumaLOG 300 UNITS/3 ML VIAL SC PRN ×6 (02:25→23:59)
[2023-02-19] MEDS: Piperacillin/Tazobactam 3.375 GM in Sodium Chloride 0.9% 100 ML IVPB SCH ×3 (02:28→20:43)
[2023-02-19 03:47] LABS: Anion Gap 11 mmol/L (10-20); BUN (Urea Nitrogen) 17 mg/dL (8.4-25.7); Calc. Creatinine Clearance 0 mL/min (70-130); Calcium 8.2 mg/dL (7.8-10.44); Carbon Dioxide 26 mmol/L (22-29); Chloride 116 mmol/L (98-107); Estimated GFR 101; Glucose 191 mg/dL (70-105); Magnesium 1.9 mg/dL (1.6-2.6); Phosphorus 1.1 mg/dL (2.3-4.7); Potassium 2.9 mmol/L (3.5-5.1); Sodium 150 mmol/L (136-145)
[2023-02-19 03:55] LABS: Hematocrit 34.9 % (38.8-50.0); Hemoglobin 11.8 g/dL (13.5-17.5); Mean Corpuscular HGB CONC 33.8 g/dL (32.0-36.0); Mean Corpuscular Hemoglobin 31.4 pg (27.0-33.0); Mean Corpuscular Volume 92.8 fl (81.2-95.1); Mean Platelet Volume 11.9 fl (7.4-10.4); Platelet Count 45 10x3/uL (150-450); RBC Distribution Width 13.6 % (11.5-14.5); Red Blood Cell (RBC) Count 3.76 10x6/uL (4.32-5.72); White Blood Cell (WBC) Count 11.2 10x3/uL (3.5-10.5)
[2023-02-19] MEDS ORDERED: Potassium Chloride 40 MEQ in Premix Bag 1 BAG IVPB SCH ×2 (04:00→10:00)
[2023-02-19] MEDS: Hydrocortisone Sod Succ/PF 100 mg/2 ml Vial IVP SCH ×2 (04:12→15:56)
[2023-02-19] MEDS: Potassium Chloride 20 MEQ in Premix Bag 1 BAG IVPB SCH ×4 (04:12→17:36)
[2023-02-19] MEDS ORDERED: Potassium Phosphate 30 MMOL in Sodium Chloride 0.9% 250 ML 250 ML IVPB SCH ×2 (04:30→14:00)
[2023-02-19] MEDS: Valproate Sodium 250 mg/5 ml UD Cup PO SCH ×2 (08:52→20:42)
[2023-02-19] MEDS: Doxycycline 100 MG in Sodium Chloride 0.9% 100 ML IVPB SCH ×2 (08:52→20:42)
[2023-02-19] MEDS: Famotidine/PF 20 mg/2ml Vial SLOW IVP SCH ×2 (08:53→20:42)
[2023-02-19] MEDS ORDERED: Electrolyte Replacement Protocol 1 EACH FS SCH (09:00)
[2023-02-19] MEDS ORDERED: Magnesium 2 GM/50 ML(in water) 2 GM in Premix Bag 1 BAG IVPB SCH (10:00)
[2023-02-19 14:50] LABS: ALT (SGPT) 215 U/L (8-55); AST (SGOT) 23 U/L (5-34); Albumin 2.2 g/dL (3.5-5.0); Alkaline Phosphatase 45 U/L (40-110); Bilirubin, Direct 0.3 mg/dL (0.1-0.3); Bilirubin, Total 0.6 mg/dL (0.2-1.2); Protein, Total 4.1 g/dL (6.0-8.3)
[2023-02-19 15:11] LABS: Anion Gap 12 mmol/L (10-20); BUN (Urea Nitrogen) 16 mg/dL (8.4-25.7); Calc. Creatinine Clearance 100 mL/min (70-130); Calcium 8.4 mg/dL (7.8-10.44); Carbon Dioxide 26 mmol/L (22-29); Chloride 114 mmol/L (98-107); Estimated GFR 102; Glucose 194 mg/dL (70-105); Phosphorus 2.5 mg/dL (2.3-4.7); Potassium 3.2 mmol/L (3.5-5.1); Sodium 149 mmol/L (136-145)
[2023-02-19] MEDS: Ipratropium/Albuterol 3 ML NEB NEB PRN (21:50)
[2023-02-19] MEDS: Acetylcysteine 800 MG/4 ML VIAL INH SCH (22:03)
[2023-02-20] MEDS: Lorazepam 2 MG/ML VIAL SLOW IVP PRN ×2 (02:46→14:37)
[2023-02-20] MEDS: Piperacillin/Tazobactam 3.375 GM in Sodium Chloride 0.9% 100 ML IVPB SCH ×3 (02:46→17:48)
[2023-02-20] MEDS: Hydrocortisone Sod Succ/PF 100 mg/2 ml Vial IVP SCH ×2 (03:12→17:46)
[2023-02-20 04:00] LABS: ALT (SGPT) 188 U/L (8-55); AST (SGOT) 27 U/L (5-34); Albumin 2.2 g/dL (3.5-5.0); Alkaline Phosphatase 40 U/L (40-110); Anion Gap 11 mmol/L (10-20); BUN (Urea Nitrogen) 13 mg/dL (8.4-25.7); Bilirubin, Total 0.8 mg/dL (0.2-1.2); Calc. Creatinine Clearance 106 mL/min (70-130); Calcium 8.1 mg/dL (7.8-10.44); Carbon Dioxide 25 mmol/L (22-29); Chloride 113 mmol/L (98-107); Estimated GFR 104; Glucose 146 mg/dL (70-105); Magnesium 2.1 mg/dL (1.6-2.6); Potassium 2.8 mmol/L (3.5-5.1); Protein, Total 4.2 g/dL (6.0-8.3); Sodium 146 mmol/L (136-145)
[2023-02-20 04:12] LABS: Hematocrit 29.1 % (38.8-50.0); Hemoglobin 9.9 g/dL (13.5-17.5); Mean Corpuscular Hemoglobin 31.2 pg (27.0-33.0); Mean Corpuscular Volume 91.8 fl (81.2-95.1); Mean Platelet Volume 12.1 fl (7.4-10.4); Platelet Count 82 10x3/uL (150-450); RBC Distribution Width 13.2 % (11.5-14.5); Red Blood Cell (RBC) Count 3.17 10x6/uL (4.32-5.72); White Blood Cell (WBC) Count 8.9 10x3/uL (3.5-10.5)
[2023-02-20] MEDS: Potassium Chloride 20 MEQ in Premix Bag 1 BAG IVPB SCH ×3 (04:16→08:16)
[2023-02-20 05:09] LABS: MDiff Complete? YES
[2023-02-20 05:10] LABS: Platelet Adequacy Comment Appears Decreased; RBC Morph Comment Within Normal Limits
[2023-02-20 05:15] LABS: Band 11 % (5-11); Lymphocytes 14 % (21-51); Monocytes 14 % (0-10); Neutrophil 61 % (42-75)
[2023-02-20] MEDS: Acetylcysteine 800 MG/4 ML VIAL INH SCH ×2 (07:07→19:14)
[2023-02-20] MEDS: Famotidine/PF 20 mg/2ml Vial SLOW IVP SCH ×2 (08:16→21:25)
[2023-02-20] MEDS: Valproate Sodium 250 mg/5 ml UD Cup PO SCH ×2 (08:16→21:25)
[2023-02-20] MEDS: Doxycycline 100 MG in Sodium Chloride 0.9% 100 ML IVPB SCH ×2 (08:17→21:25)
[2023-02-20 08:35] LABS: Phosphorus 1.4 mg/dL (2.3-4.7)
[2023-02-20] MEDS ORDERED: Potassium Phosphate 22 MMOL in Sodium Chloride 0.9% 250 ML 250 ML IVPB SCH (10:30)
[2023-02-20] MEDS: HumaLOG 300 UNITS/3 ML VIAL SC PRN (12:07)
[2023-02-20 12:42] LABS: Reference Lab Name LABCORP
[2023-02-20 12:51] LABS: Ref Lab Test Ordered Babesia microti PCR; Reference Lab Name LABCORP
[2023-02-20 18:34] VITALS: TEMP 98.8
[2023-02-20 20:05] LABS: Magnesium 2.1 mg/dL (1.6-2.6); Phosphorus 2.4 mg/dL (2.3-4.7)
[2023-02-21] MEDS: Piperacillin/Tazobactam 3.375 GM in Sodium Chloride 0.9% 100 ML IVPB SCH ×3 (04:00→21:17)
[2023-02-21] MEDS: Hydrocortisone Sod Succ/PF 100 mg/2 ml Vial IVP SCH (05:02)
[2023-02-21 05:27] LABS: Hematocrit 32.3 % (38.8-50.0); Hemoglobin 11.2 g/dL (13.5-17.5); Mean Corpuscular HGB CONC 34.7 g/dL (32.0-36.0); Mean Corpuscular Hemoglobin 31.5 pg (27.0-33.0); Mean Platelet Volume 11.5 fl (7.4-10.4); Platelet Count 109 10x3/uL (150-450); Red Blood Cell (RBC) Count 3.55 10x6/uL (4.32-5.72); White Blood Cell (WBC) Count 9.9 10x3/uL (3.5-10.5)
[2023-02-21 05:40] LABS: ALT (SGPT) 152 U/L (8-55); AST (SGOT) 31 U/L (5-34); Albumin 2.4 g/dL (3.5-5.0); Alkaline Phosphatase 41 U/L (40-110); Anion Gap 17 mmol/L (10-20); BUN (Urea Nitrogen) 13 mg/dL (8.4-25.7); Bilirubin, Total 0.9 mg/dL (0.2-1.2); Calc. Creatinine Clearance 104 mL/min (70-130); Calcium 8.7 mg/dL (7.8-10.44); Carbon Dioxide 19 mmol/L (22-29); Chloride 113 mmol/L (98-107); Estimated GFR 103; Globulin 2.8 g/dL (2.4-3.5); Glucose 155 mg/dL (70-105); Potassium 4.9 mmol/L (3.5-5.1); Protein, Total 5.2 g/dL (6.0-8.3); Sodium 144 mmol/L (136-145)
[2023-02-21 05:45] LABS: MDiff Complete? YES
[2023-02-21 06:30] LABS: Platelet Adequacy Comment Appears Decreased
[2023-02-21 06:31] LABS: RBC Morph Comment Within Normal Limits
[2023-02-21 06:32] LABS: Band 10 % (5-11); Lymphocytes 16 % (21-51); Metamyelocyte 1 % (0-0); Monocytes 13 % (0-10); Neutrophil 60 % (42-75)
[2023-02-21] MEDS: Acetylcysteine 800 MG/4 ML VIAL INH SCH (08:30)
[2023-02-21] MEDS: Ipratropium/Albuterol 3 ML NEB NEB PRN (08:30)
[2023-02-21] MEDS: Doxycycline 100 MG in Sodium Chloride 0.9% 100 ML IVPB SCH ×2 (08:33→21:15)
[2023-02-21] MEDS: Famotidine/PF 20 mg/2ml Vial SLOW IVP SCH ×2 (08:33→21:16)
[2023-02-21] MEDS: Valproate Sodium 250 mg/5 ml UD Cup PO SCH ×2 (08:33→21:16)
[2023-02-21 08:41] VITALS: BMI 22.8
[2023-02-21 09:05] LABS: Actual Bicarbonate (HCO3v) 27.1 mEq/L (22-28); Base Excess 6.1 mEq/L (-2 - +2); Calcium, Ionized (venous) 1.21 mmol/L (1.16-1.32); Chloride (VBG) 106 mmol/L (98-106); Hematocrit-VBG 35 % (42.0-52.0); Hemoglobin (Hb) 11.9 g/dL (13.1-17.2); Sodium 140.3 mmol/L (133-146); pH (venous) 7.606 (7.32-7.43)
[2023-02-21 09:14] LABS: Puncture Site Other Site
[2023-02-21 14:09] LABS: CK (CPK) 68 U/L (30-200); Phosphorus 2.1 mg/dL (2.3-4.7)
[2023-02-21 14:30] LABS: Free T4 (Free Thyroxine) 0.78 ng/dL (0.70-1.48)
[2023-02-21] MEDS ORDERED: Potassium Phosphate 30 MMOL in Sodium Chloride 0.9% 500 ML IVPB SCH (16:00)
[2023-02-21 16:24] LABS: Phosphorus 2.1 mg/dL (2.3-4.7)
[2023-02-21] MEDS ORDERED: Magnesium 2 GM/50 ML(in water) 2 GM in Premix Bag 1 BAG IVPB SCH (18:00)
[2023-02-21] MEDS: Heparin 5,000 UNITS/ML VIAL SC SCH (21:16)
[2023-02-22 04:22] LABS: #Basophils 0.1 10x3/uL (0.0-0.2); #Eosinphils 0.1 10x3/uL (0.0-0.5); #Monocytes 1.4 10x3/uL (0.0-1.1); #Neutrophils 6.4 10x3/uL (1.5-8.4); %Basophils 0.5 % (0.0-2.0); %Eosinophils 0.6 % (0.0-6.0); %Lymphocytes 14.2 % (18.0-47.0); %Monocytes 14.1 % (0.0-10.0); Mean Corpuscular HGB CONC 34.5 g/dL (32.0-36.0); Mean Corpuscular Hemoglobin 32.3 pg (27.0-33.0); Mean Corpuscular Volume 93.5 fl (81.2-95.1); Mean Platelet Volume 10.8 fl (7.4-10.4); Platelet Count 177 10x3/uL (150-450); RBC Distribution Width 13.2 % (11.5-14.5); White Blood Cell (WBC) Count 9.6 10x3/uL (3.5-10.5)
[2023-02-22 04:33] LABS: Phosphorus 2.5 mg/dL (2.3-4.7)
[2023-02-22 04:35] LABS: ALT (SGPT) 105 U/L (8-55); AST (SGOT) 20 U/L (5-34); Albumin 2.2 g/dL (3.5-5.0); Alkaline Phosphatase 36 U/L (40-110); Anion Gap 12 mmol/L (10-20); BUN (Urea Nitrogen) 8 mg/dL (8.4-25.7); Bilirubin, Total 0.9 mg/dL (0.2-1.2); Calc. Creatinine Clearance 118 mL/min (70-130); Calcium 8.1 mg/dL (7.8-10.44); Carbon Dioxide 22 mmol/L (22-29); Chloride 111 mmol/L (98-107); Estimated GFR 107; Globulin 2.2 g/dL (2.4-3.5); Glucose 108 mg/dL (70-105); Potassium 2.8 mmol/L (3.5-5.1); Protein, Total 4.4 g/dL (6.0-8.3); Sodium 142 mmol/L (136-145)
[2023-02-22] MEDS ORDERED: Magnesium 2 GM/50 ML(in water) 2 GM in Premix Bag 1 BAG IVPB SCH (06:00)
[2023-02-22] MEDS: Piperacillin/Tazobactam 3.375 GM in Sodium Chloride 0.9% 100 ML IVPB SCH ×3 (06:19→21:16)
[2023-02-22] MEDS: Potassium Chloride 40 MEQ in Premix Bag 1 BAG IVPB SCH ×2 (06:19→08:37)
[2023-02-22] MEDS ORDERED: Haloperidol Lactate 5 MG/ML VIAL IM SCH (08:00)
[2023-02-22] MEDS: Famotidine/PF 20 mg/2ml Vial SLOW IVP SCH ×2 (08:36→20:34)
[2023-02-22] MEDS: Heparin 5,000 UNITS/ML VIAL SC SCH (08:36)
[2023-02-22] MEDS: Valproate Sodium 250 mg/5 ml UD Cup PO SCH ×2 (08:36→20:40)
[2023-02-22] MEDS: Doxycycline 100 MG in Sodium Chloride 0.9% 100 ML IVPB SCH ×2 (08:36→20:34)
[2023-02-22] MEDS ORDERED: Hydrocortisone Sod Succ/PF 100 mg/2 ml Vial IVP SCH (09:00)
[2023-02-22] MEDS ORDERED: acetaZOLAMIDE Sodium 500 mg Vial IVP SCH (10:00)
[2023-02-22] MEDS ORDERED: Furosemide 40 MG/4 ML VIAL SLOW IVP SCH (10:00)
[2023-02-22] MEDS ORDERED: Iopamidol 300 61% 100 ML VIAL FS ONE (10:12)
[2023-02-22] MEDS ORDERED: Midazolam HCl 2 mg/2 ml Vial SLOW IVP SCH ×2 (10:30→11:00)
[2023-02-22] MEDS ORDERED: niCARdipine 25 MG in Sodium Chloride 0.9% 250 ML 250 ML IVPB SCH (13:15)
[2023-02-22] MEDS ORDERED: Midazolam HCl 5 mg/5 ml Vial SLOW IVP SCH (14:15)
[2023-02-22 14:34] LABS: Potassium 3.1 mmol/L (3.5-5.1)
[2023-02-22] MEDS ORDERED: Heparin 5,000 UNITS/ML VIAL SC SCH (15:00)
[2023-02-22] MEDS ORDERED: Potassium Chloride 40 MEQ in Premix Bag 1 BAG IVPB SCH (17:00)
[2023-02-22] MEDS: acetaZOLAMIDE Sodium 500 mg Vial IVP SCH (20:42)
[2023-02-22] MEDS ORDERED: Scopolamine 1.5 mg/72 hour Patch TOP SCH (21:30)
[2023-02-23] MEDS: Piperacillin/Tazobactam 3.375 GM in Sodium Chloride 0.9% 100 ML IVPB SCH ×2 (05:28→14:50)
[2023-02-23 05:39] LABS: Phosphorus 2.8 mg/dL (2.3-4.7)
[2023-02-23 06:00] LABS: #Basophils 0.1 10x3/uL (0.0-0.2); #Eosinphils 0.2 10x3/uL (0.0-0.5); #Monocytes 1.1 10x3/uL (0.0-1.1); #Neutrophils 7.6 10x3/uL (1.5-8.4); %Basophils 0.5 % (0.0-2.0); %Eosinophils 1.6 % (0.0-6.0); %Lymphocytes 14.7 % (18.0-47.0); %Monocytes 9.7 % (0.0-10.0); %Neutrophils 69.6 % (40.0-75.0); Hematocrit 33.9 % (38.8-50.0); Hemoglobin 11.3 g/dL (13.5-17.5); Mean Corpuscular HGB CONC 33.3 g/dL (32.0-36.0); Mean Corpuscular Hemoglobin 31.6 pg (27.0-33.0); Mean Corpuscular Volume 94.7 fl (81.2-95.1); Mean Platelet Volume 10.2 fl (7.4-10.4); Platelet Count 95 10x3/uL (150-450); RBC Distribution Width 14.1 % (11.5-14.5); Red Blood Cell (RBC) Count 3.58 10x6/uL (4.32-5.72)
[2023-02-23 06:18] LABS: ALT (SGPT) 86 U/L (8-55); AST (SGOT) 15 U/L (5-34); Albumin 2.4 g/dL (3.5-5.0); Alkaline Phosphatase 38 U/L (40-110); Anion Gap 10 mmol/L (10-20); BUN (Urea Nitrogen) 10 mg/dL (8.4-25.7); Bilirubin, Total 0.7 mg/dL (0.2-1.2); Calc. Creatinine Clearance 112 mL/min (70-130); Calcium 8.4 mg/dL (7.8-10.44); Carbon Dioxide 17 mmol/L (22-29); Chloride 115 mmol/L (98-107); Estimated GFR 105; Globulin 2.6 g/dL (2.4-3.5); Glucose 97 mg/dL (70-105); Magnesium 2.4 mg/dL (1.6-2.6); Potassium 3.5 mmol/L (3.5-5.1); Sodium 138 mmol/L (136-145)
[2023-02-23 06:21] LABS: Platelet Adequacy Comment Appears Decreased; RBC Morph Comment Within Normal Limits
[2023-02-23] MEDS ORDERED: Potassium Bicarbonate/Cit Ac 20 MEQ TAB PER TUBE SCH (08:00)
[2023-02-23] MEDS: Doxycycline 100 MG in Sodium Chloride 0.9% 100 ML IVPB SCH (08:19)
[2023-02-23] MEDS: Valproate Sodium 250 mg/5 ml UD Cup PO SCH (08:19)
[2023-02-23] MEDS: acetaZOLAMIDE Sodium 500 mg Vial IVP SCH (08:20)
[2023-02-23] MEDS: Famotidine/PF 20 mg/2ml Vial SLOW IVP SCH (08:20)
[2023-02-23] MEDS ORDERED: Hydrocortisone Sod Succ/PF 100 mg/2 ml Vial IVP SCH (09:00)
[2023-02-23] MEDS ORDERED: Dexmedetomidine In 0.9 % NaCl 400 MCG in Premix Bag 1 BAG IVPB SCH (10:00)
[2023-02-23] MEDS ORDERED: VANCOMYCIN 1.25 GM/250 ML BAG 1.25 GM in Premix Bag 1 BAG IVPB SCH (10:00)
[2023-02-23] MEDS ORDERED: Thiamine HCl 200 MG/2 ML VIAL SLOW IVP SCH ×3 (11:00→15:00)
[2023-02-23] MEDS ORDERED: Midazolam HCl 2 mg/2 ml Vial SLOW IVP SCH (11:10)
[2023-02-23 12:27] VITALS: BP 105/61
[2023-02-23] MEDS: Lorazepam 2 MG/ML VIAL SLOW IVP PRN (14:48)
[2023-02-23] MEDS ORDERED: Vancomycin HCl 1 GM in Sodium Chloride 0.9% 250 ML 250 ML IVPB SCH (23:00)
== END 2023-02-23 17:33 | disposition short-term general hospital (02) | DRG 870 ==
LOC: CSHERS 19:11 → CSHICU 22:42
PROVIDERS: ADMIT Family Medicine; ATTEND Internal Medicine
PROC: 0D9670Z Drainage of Stomach with Drainage Device, Via Natural or Artificial Opening (ICD-10-PCS; principal; 2023-02-13)
PROC: 5A1955Z Respiratory Ventilation, Greater than 96 Consecutive Hours (ICD-10-PCS; 2023-02-13)
PROC: 0BH17EZ Insertion of Endotracheal Airway into Trachea, Via Natural or Artificial Opening (ICD-10-PCS; 2023-02-13)
PROC: 3E033XZ Introduction of Vasopressor into Peripheral Vein, Percutaneous Approach (ICD-10-PCS; 2023-02-13)
PROC: 3E03329 Introduction of Other Anti-infective into Peripheral Vein, Percutaneous Approach (ICD-10-PCS; 2023-02-13)
PROC: 06HY33Z Insertion of Infusion Device into Lower Vein, Percutaneous Approach (ICD-10-PCS; 2023-02-15)
PROC: 4A133R1 Monitoring of Arterial Saturation, Peripheral, Percutaneous Approach (ICD-10-PCS; 2023-02-15)
DX: A41.9 Sepsis, unspecified organism (principal); J18.9 Pneumonia, unspecified organism; G92.8 Other toxic encephalopathy; J96.01 Acute respiratory failure with hypoxia; I21.A1 Myocardial infarction type 2; K72.00 Acute and subacute hepatic failure without coma; R65.21 Severe sepsis with septic shock; I62.00 Nontraumatic subdural hemorrhage, unspecified; R57.1 Hypovolemic shock; T67.01XA Heatstroke and sunstroke, initial encounter; I47.1 Supraventricular tachycardia; E87.20 Acidosis, unspecified; N17.9 Acute kidney failure, unspecified; E87.3 Alkalosis; I10 Essential (primary) hypertension; F31.9 Bipolar disorder, unspecified; F20.9 Schizophrenia, unspecified; X58.XXXA Exposure to other specified factors, initial encounter; Z20.822 Contact with and (suspected) exposure to COVID-19; E86.0 Dehydration; D69.6 Thrombocytopenia, unspecified; E11.649 Type 2 diabetes mellitus with hypoglycemia without coma; E83.39 Other disorders of phosphorus metabolism; D72.829 Elevated white blood cell count, unspecified; T38.0X5A Adverse effect of glucocorticoids and synthetic analogues, initial encounter; E87.6 Hypokalemia; Y92.89 Other specified places as the place of occurrence of the external cause
CPT/HCPCS: 31500; 36415; 36416; 36600; 70450; 70470; 70496; 70498; 70551; 71045; 71250; 71260; 74177; 80048; 80053; 80074; 80076; 80164; 80202; 80306; 80307; 81001; 82140; 82248; 82550; 82607; 82805; 83010; 83036; 83605; 83615; 83690; 83735; 83880; 84100; 84132; 84425; 84439; 84443; 84484; 85025; 85027; 85046; 85379; 85610; 86757; 86880; 87040; 87070; 87077; 87081; 87086; 87149; 87186; 87205; 87324; 87389; 87449; 87899; 93005; 93010; 93306; 94002; 94003; 94150; 94640; 94760; 94762; 96365; 96367; 96375; 99292; J0290; J0692; J1120; J1644; J1650; J1720; J1815; J1940; J1956; J2060; J2250; J2310; J2543; J2704; J3370; J3411; J3475; J3480; J3490; J7030; J7050; J7070; J7120; J7620; Q9967; S0028